=== PATIENT | female | born 1940 | race Caucasian/White ===

== ENCOUNTER 2016-11-16 11:22 | Emergency (ER) | payer MEDICARE, OTHER ==
[~2016-11-16 11:22] MED LIST: ACETAMINOPHEN; ANTIVERT25 MG PO; ATENOLOL50 MG PO; BACTRIM1 TAB PO; BENTYL10 MG PO; CALCIUM 600 +1 EAC9 PO; CALCIUM 600 +1 EACH PO; CHOLEST CARE500 MG PO; CINNAMON500 MG PO; COUMADIN2.5 M1 PO; COUMADIN2.5 MG PO; COUMADIN5 M2 PO; FENOFIBRATE200 MG PO; FISH OIL 1,2001 CAP PO; FLECAINIDE ACE100 MG PO; GLUCOSAMINE & C1 CAP PO; ISOSORBIDE MONO30 M4 PO; MULTIVITAMIN1 TAB PO; NITROFURANTOIN100 M PO; NORVASC2.5 MG PO; NORVASC5 M1 PO; PERCOCET 5/3251 TAB PO; PREDNISONE10 MG PO; PRILOSEC20 MG PO; PRINIVIL20 M1 PO; RED YEAST RICE600 MG PO; REQUIP0.5 MG PO; TENORMIN50 M1 PO; TYLENOL ARTHRI650 M1 PO; TYLENOL ARTHRI650 MG PO; TYLENOL325 MG PO; ULTRAM50 MG PO; VITAMIN B COMPL1 CAP PO; VITAMIN D1000 UNIT PO; XANAX0.5 MG PO
[2016-11-16 11:47] LABS: BASO % 0.2 % (0-2); EOS % 1.3 % (0-7); EOSINOPHIL ABSOLUTE COUNT 0.1 tho/cmm (0.0-0.7); HCT-HEMATOCRIT 35.5 % (34.0-49.0); HGB-HEMOGLOBIN 11.5 gm/dl (12.0-15.5); IMMATURE GRANULOCYTES ABSOLUTE 0.01 tho/cmm (0-0.03); IMMATURE GRANULOCYTES PERCENT 0.2 % (0-0.3); LYMPH % 21.9 % (20-45); MCH (MEAN CORPUSCULAR HGB) 30.9 pg (28.0-32.0); MCHC MEAN CORPUSCULAR HGB CONC 32.4 % (32.0-36.0); MCV (MEAN CELL VOLUME) 95.4 fl (82.0-96.0); MEAN PLATELET VOLUME 9.4 cmc (9.4-12.4); MONO % 5.2 % (0-12); MONOCYTE ABSOLUTE COUNT 0.2 tho/cmm (0.0-1.2); NEUTROPHIL ABSOLUTE COUNT 3.3 tho/cmm (1.6-8.0); NEUTROPHIL-AUTOMATED 3.3 tho/cmm (1.6-8.0); NEUTROPHILS % 71.2 % (40-80); PLATELET COUNT 156 tho/cmm (150-450); RED BLOOD COUNT 3.72 mil/cmm (4.00-5.20); RED CELL DISTRIBUTION WIDTH 13.4 % (12.4-16.4); WHITE BLOOD COUNT 4.7 tho/cmm (4.0-10.0)
[2016-11-16 11:53] LABS: INR 2.7 INR (0.9-1.1); PROTHROMBIN TIME 32.9 SECONDS (9.0-13.6)
[2016-11-16 12:00] LABS: ANION GAP 14 mmol/L (0-20); BLOOD UREA NITROGEN 30 mg/dl (6-24); CALCIUM 8.3 mg/dl (8.5-10.5); CARBON DIOXIDE-VENOUS 27 mmol/L (22-32); CHLORIDE 109 mmol/l (96-110); CREATININE 1.27 mg/dl (0.50-1.10); GLUCOSE 135 mg/dL (70-110); POTASSIUM 4.7 mmol/L (3.7-5.1); SODIUM 145 mmol/L (135-145); eGFR VALUE FOR BLACK 47 mL/Min
[2016-11-16] MEDS ORDERED: FENOFIBRATE200 M1 PO (12:08)
[2016-11-16] MEDS ORDERED: BENTYL10 M1 PO (12:11)
[2016-11-16] MEDS ORDERED: NEURONTIN300 M1 PO (12:11)
[2016-11-16] MEDS ORDERED: ISOSORBIDE MONO30 M4 PO (12:14)
[2016-11-16] MEDS ORDERED: FLONASE ALLERG9.9 ML (12:16)
[2016-11-16] MEDS ORDERED: NITROSTAT0.4 M1 SL (12:17)
[2016-11-16] MEDS ORDERED: POTASSIUM GLUC500 MG PO (12:19)
[2016-11-16] MEDS ORDERED: VITAMIN D31000 UNI3 PO (12:20)
[2016-11-16] MEDS ORDERED: TYLENOL EXTRA500 M1 PO (12:21)
[2016-11-16] MEDS ORDERED: LUTEIN PO (12:23)
== END 2016-11-16 13:16 ==
LOC: EDMED 11:22
PROVIDERS: Emergency Medicine
DX: R55 Syncope and collapse (principal); Z79.01 Long term (current) use of anticoagulants